=== PATIENT | female | born 1950 | race Two or more races ===

== ENCOUNTER 2019-09-22 11:08 | Inpatient (IN) | payer OTHER ==
[~2019-09-22] VITALS: Ht 160 cm; Wt 74.8 kg
[~2019-09-22 11:08] MED LIST: MACROBID 100 M100 MG PO; TRAMADOL HCL-AP1 TAB PO
[2019-10-09] MEDS ORDERED: COZAAR50 MG PO (11:24)
[2019-10-09] MEDS ORDERED: SIMVASTATIN20 MG PO (11:25)
[2019-10-09] MEDS ORDERED: AMITRIPTYLINE H75 MG PO (11:25)
[2019-10-09] MEDS ORDERED: CAMBIA50 MG PO (11:25)
[2019-10-09] MEDS ORDERED: VITAMIN D-40010 MCG PO (11:26)
[2019-10-17] MEDS ORDERED: STOOL SOFTENER240 MG (08:10)
[2019-10-17] MEDS ORDERED: VITAMIN D310 MC5 (08:21)
[2019-10-19] MEDS ORDERED: TRAMADOL HCL50 MG PO (12:23)
[2019-10-19] MEDS ORDERED: INTESTINEX680 M1 PO (12:23)
== END 2019-10-19 13:16 | disposition home or self-care (01) | DRG 331 ==
LOC: SURH 10-16 06:31 → O/R 10-16 06:31 → SURH 10-16 09:00
PROVIDERS: ADMIT Surgery; ATTEND Surgery
PROC: 0DBN4ZZ Excision of Sigmoid Colon, Percutaneous Endoscopic Approach (ICD-10-PCS; 2019-10-16)
PROC: 0DTP4ZZ Resection of Rectum, Percutaneous Endoscopic Approach (ICD-10-PCS; principal; 2019-10-16 10:15)
DX: K57.30 Diverticulosis of large intestine without perforation or abscess without bleeding (principal); I10 Essential (primary) hypertension